=== PATIENT | female | born 1975 | race Caucasian/White ===

== ENCOUNTER 2017-07-14 21:22 | Inpatient (IN) | payer MEDICARE, OTHER ==
[~2017-07-14] VITALS: Ht 160 cm; Wt 93.0 kg
[~2017-07-14 21:22] MED LIST: BENZ1TAB10 PO; DIVA500T52 PO; QUET200T PO
[2017-07-14] MEDS ORDERED: ZOLPIDEM TARTRATE 10 MG TABLET PO PRN (22:30)
[2017-07-15 06:47] VITALS: BP 139/74
[2017-07-15 07:10] VITALS: BP 139/74
[2017-07-15 08:53] VITALS: BP 115/66
[2017-07-15] MEDS ORDERED: HALOPERIDOL LACTATE 5 MG/ML VIAL IM ONE (09:30)
[2017-07-15] MEDS ORDERED: LORazepam 2 MG/ML VIAL IM ONE (09:30)
[2017-07-15] MEDS ORDERED: DiphenhydrAMINE HCL 50 MG/ML VIAL IM ONE (09:30)
[2017-07-15] MEDS ORDERED: LORazepam 2 MG/ML VIAL ONE (14:29)
[2017-07-15] MEDS ORDERED: DiphenhydrAMINE HCL 50 MG/ML VIAL ONE (14:29)
[2017-07-15] MEDS ORDERED: HALOPERIDOL LACTATE 5 MG/ML VIAL ONE (14:29)
[2017-07-15 16:13] VITALS: BP 118/60
[2017-07-16 05:51] VITALS: BP 101/64
[2017-07-16 08:23] VITALS: BP 113/79
[2017-07-16] MEDS: PALIPERIDONE 3 MG ER TABLET PO SCH ×3 (08:43→17:00)
[2017-07-16 16:15] VITALS: BP 147/90
[2017-07-17 05:54] VITALS: BP 133/87
[2017-07-17 08:22] VITALS: BP 99/60
[2017-07-17] MEDS: PALIPERIDONE 3 MG ER TABLET PO SCH ×3 (09:00→17:00)
[2017-07-17 16:29] VITALS: BP 121/77
[2017-07-18 04:58] VITALS: BP 124/80
[2017-07-18 08:38] VITALS: BP 120/71
[2017-07-18] MEDS: PALIPERIDONE 3 MG ER TABLET PO SCH ×3 (09:00→16:39)
[2017-07-18 16:47] VITALS: BP 133/86
[2017-07-19 03:50] VITALS: BP 124/82
[2017-07-19 08:05] VITALS: BP 115/65
[2017-07-19] MEDS: PALIPERIDONE 3 MG ER TABLET PO SCH ×3 (09:00→17:00)
[2017-07-19] MEDS ORDERED: ACETAMINOPHEN 325 MG TABLET PO PRN ×2 (10:00→21:00)
[2017-07-19] MEDS ORDERED: IBUPROFEN 600 MG TABLET PO PRN ×2 (10:00→21:00)
[2017-07-20 01:31] VITALS: BP 114/71
[2017-07-20] MEDS: HALOPERIDOL 5 MG TABLET PO PRN (01:38)
[2017-07-20] MEDS: LORazepam 2 MG TABLET PO PRN (01:38)
[2017-07-20 08:51] VITALS: BP 133/88
[2017-07-20] MEDS: OLANZapine 5 MG RAPDIS TABLET PO SCH ×3 (09:00→16:15)
[2017-07-20 16:33] VITALS: BP 116/65
[2017-07-21 06:30] VITALS: BP 128/88
[2017-07-21] MEDS: LORazepam 2 MG TABLET PO PRN (08:33)
[2017-07-21] MEDS: OLANZapine 5 MG RAPDIS TABLET PO SCH ×3 (08:33→17:00)
[2017-07-21] MEDS: HALOPERIDOL 5 MG TABLET PO PRN (08:40)
[2017-07-21 09:27] VITALS: BP 139/82
[2017-07-21 16:31] VITALS: BP 140/84
[2017-07-21] MEDS ORDERED: DiphenhydrAMINE HCL 50 MG/ML VIAL ONE (18:26)
[2017-07-21] MEDS ORDERED: HALOPERIDOL LACTATE 5 MG/ML VIAL ONE ×2 (18:26→19:00)
[2017-07-21] MEDS ORDERED: LORazepam 2 MG/ML VIAL ONE (18:26)
[2017-07-21] MEDS ORDERED: LORazepam 2 MG/ML VIAL IM ONE (19:10)
[2017-07-21] MEDS ORDERED: HALOPERIDOL LACTATE 5 MG/ML VIAL IM ONE (19:10)
[2017-07-21] MEDS ORDERED: DiphenhydrAMINE HCL 50 MG/ML VIAL IM ONE (19:10)
[2017-07-21 19:40] VITALS: BP 127/69
[2017-07-22 02:00] VITALS: BP 132/70
[2017-07-22] MEDS: OLANZapine 5 MG RAPDIS TABLET PO SCH ×2 (08:39→16:23)
[2017-07-22 09:02] VITALS: BP 129/88
[2017-07-22] MEDS ORDERED: HALOPERIDOL LACTATE 5 MG/ML VIAL IM PRN (15:15)
[2017-07-22 16:08] VITALS: BP 128/88
[2017-07-22 16:17] VITALS: BP 146/79
[2017-07-23 04:48] VITALS: BP 133/77
[2017-07-23] MEDS: HALOPERIDOL 10 MG TABLET PO SCH ×3 (08:12→17:09)
[2017-07-23] MEDS: LORazepam 2 MG TABLET PO PRN (08:12)
[2017-07-23 08:43] VITALS: BP 139/80
[2017-07-23 16:00] VITALS: BP 144/73
[2017-07-24 05:36] VITALS: BP 132/71
[2017-07-24] MEDS: LORazepam 2 MG TABLET PO PRN (08:11)
[2017-07-24] MEDS: HALOPERIDOL 10 MG TABLET PO SCH ×2 (08:11→17:44)
[2017-07-24 08:50] VITALS: BP 120/75
[2017-07-24 16:00] VITALS: BP 123/71
[2017-07-25 05:20] VITALS: BP 120/78
[2017-07-25 08:14] VITALS: BP 112/73
[2017-07-25] MEDS: HALOPERIDOL 10 MG TABLET PO SCH ×2 (09:12→16:40)
[2017-07-25 16:23] VITALS: BP 132/87
[2017-07-26 04:12] VITALS: BP 128/78
[2017-07-26] MEDS: HALOPERIDOL 10 MG TABLET PO SCH ×2 (08:28→16:47)
[2017-07-26 08:49] VITALS: BP 140/84
[2017-07-26 16:00] VITALS: BP 131/89
[2017-07-26] MEDS: LORazepam 2 MG TABLET PO PRN (18:07)
[2017-07-27 06:19] VITALS: BP 105/70
[2017-07-27 08:11] VITALS: BP 136/71
[2017-07-27] MEDS: HALOPERIDOL 10 MG TABLET PO SCH ×2 (08:29→16:16)
[2017-07-27 16:24] VITALS: BP 124/66
[2017-07-27] MEDS: TraZODone HCL 50 MG TABLET PO SCH (20:28)
[2017-07-27] MEDS ORDERED: DIVALPROEX SODIUM 500 MG ER TABLET PO SCH ×2 (21:00)
[2017-07-28 06:40] VITALS: BP 129/74
[2017-07-28] MEDS: HALOPERIDOL 10 MG TABLET PO SCH ×2 (08:53→16:27)
[2017-07-28 09:40] VITALS: BP 102/55
[2017-07-28 16:27] VITALS: BP 119/68
[2017-07-28] MEDS: TraZODone HCL 50 MG TABLET PO SCH (20:11)
[2017-07-29 08:33] VITALS: BP 115/67
[2017-07-29] MEDS: HALOPERIDOL 10 MG TABLET PO SCH ×2 (08:57→16:21)
[2017-07-29] MEDS: LORazepam 2 MG TABLET PO PRN (08:57)
[2017-07-29] MEDS: DIVALPROEX SODIUM 500 MG ER TABLET PO SCH ×2 (08:57→16:22)
[2017-07-29 16:12] VITALS: BP 111/66
[2017-07-29] MEDS: TraZODone HCL 50 MG TABLET PO SCH (20:30)
[2017-07-30 06:41] VITALS: BP 108/65
[2017-07-30 08:20] VITALS: BP 100/56
[2017-07-30] MEDS: HALOPERIDOL 10 MG TABLET PO SCH ×2 (08:49→17:15)
[2017-07-30] MEDS: DIVALPROEX SODIUM 500 MG ER TABLET PO SCH ×2 (08:49→17:00)
[2017-07-30] MEDS ORDERED: HALOPERIDOL DECANOATE 50 MG/ML VIAL IM SCH (09:00)
[2017-07-30 16:10] VITALS: BP 121/63
[2017-07-30] MEDS: TraZODone HCL 50 MG TABLET PO SCH (21:16)
[2017-07-31 06:23] VITALS: BP 103/62
[2017-07-31 08:35] VITALS: BP 129/60
[2017-07-31] MEDS: HALOPERIDOL 10 MG TABLET PO SCH ×2 (08:49→17:11)
[2017-07-31] MEDS: DIVALPROEX SODIUM 500 MG ER TABLET PO SCH ×2 (08:50→17:11)
[2017-07-31 16:00] VITALS: BP 118/71
[2017-07-31] MEDS: TraZODone HCL 50 MG TABLET PO SCH (20:34)
[2017-08-01 03:58] VITALS: BP 114/68
[2017-08-01 08:18] VITALS: BP 102/57
[2017-08-01] MEDS: HALOPERIDOL 10 MG TABLET PO SCH ×2 (09:29→17:04)
[2017-08-01] MEDS: DIVALPROEX SODIUM 500 MG ER TABLET PO SCH ×2 (09:29→17:04)
[2017-08-01 16:37] VITALS: BP 119/84
[2017-08-01] MEDS: TraZODone HCL 50 MG TABLET PO SCH (20:22)
[2017-08-02 05:07] VITALS: BP 117/73
[2017-08-02 08:00] VITALS: BP 105/63
[2017-08-02] MEDS: DIVALPROEX SODIUM 500 MG ER TABLET PO SCH ×2 (09:00→17:02)
[2017-08-02] MEDS: HALOPERIDOL 10 MG TABLET PO SCH ×2 (09:00→17:01)
[2017-08-02 16:20] VITALS: BP 109/60
[2017-08-02] MEDS: TraZODone HCL 50 MG TABLET PO SCH (20:16)
[2017-08-03 02:33] VITALS: BP 117/63
[2017-08-03 08:46] VITALS: BP 118/78
[2017-08-03] MEDS: DIVALPROEX SODIUM 500 MG ER TABLET PO SCH ×2 (08:46→16:08)
[2017-08-03] MEDS: HALOPERIDOL 10 MG TABLET PO SCH ×2 (08:46→16:08)
[2017-08-03 16:17] VITALS: BP 117/68
[2017-08-03] MEDS: TraZODone HCL 50 MG TABLET PO SCH (20:12)
[2017-08-04 07:08] VITALS: BP 116/82
[2017-08-04] MEDS: DIVALPROEX SODIUM 500 MG ER TABLET PO SCH ×2 (08:12→16:15)
[2017-08-04] MEDS: HALOPERIDOL 10 MG TABLET PO SCH ×2 (08:12→16:15)
[2017-08-04] MEDS ORDERED: DIVA500T35 PO (12:59)
[2017-08-04] MEDS ORDERED: TRAZ-144 PO (12:59)
[2017-08-04] MEDS ORDERED: HALO10 PO (12:59)
[2017-08-04] MEDS ORDERED: HALO50VI4 IM (13:01)
[2017-08-04 14:00] VITALS: BP 102/66
[2017-08-04 16:25] VITALS: BP 131/71
[2017-08-04] MEDS: BENZTROPINE MESYLATE 1 MG TABLET PO SCH (19:57)
[2017-08-04] MEDS: TraZODone HCL 50 MG TABLET PO SCH (20:17)
[2017-08-05 04:17] VITALS: BP 130/70
[2017-08-05] MEDS: BENZTROPINE MESYLATE 1 MG TABLET PO SCH (08:21)
[2017-08-05] MEDS: DIVALPROEX SODIUM 500 MG ER TABLET PO SCH (08:21)
[2017-08-05] MEDS: HALOPERIDOL 10 MG TABLET PO SCH (08:21)
[2017-08-05 08:29] LABS: HEMOGLOBIN A1C 6.1 % (4.5-6.2)
[2017-08-05 08:33] LABS: BASOPHILS % (AUTO) 0.2 % (0.0-2.0); EOSINOPHILS % (AUTO) 1.1 % (1.0-6.0); HEMATOCRIT 30.1 % (36-46); HEMOGLOBIN 9.1 g/dL (12.0-16.0); LYMPHOCYTES # (AUTO) 2.6 K/uL (1.0-4.8); LYMPHOCYTES % (AUTO) 34.5 % (22.0-44.0); MEAN CORPUSCULAR HEMOGLOBIN 19.6 pg (26.0-34.0); MEAN CORPUSCULAR HGB CONC 30.2 G/dL (31.0-37.0); MEAN CORPUSCULAR VOLUME 65 fL (80-100); MONOCYTES # (AUTO) 0.2 K/uL (0.1-1.0); MONOCYTES % (AUTO) 3.3 % (2.0-9.0); NEUTROPHILS # (AUTO) 4.6 K/uL (1.8-7.7); NEUTROPHILS % (AUTO) 60.9 % (40.0-70.0); PLATELET COUNT (AUTO) 475 K/uL (150-450); RED BLOOD CELL COUNT(AUTO) 4.64 MIL/uL (4.00-5.20); RED CELL DISTRIBUTION WIDTH 19.4 % (11.5-14.5); WHITE BLOOD COUNT (AUTO) 7.5 K/uL (4.5-11.0)
[2017-08-05 08:42] LABS: RBC MORPHOLOGY COMMENT ABNORMAL RBC MORPH
[2017-08-05 08:57] LABS: VITAMIN B12 LEVEL > 2000 pg/mL (211-911)
[2017-08-05 09:03] LABS: ALANINE AMINOTRANSFERASE 13 U/L (12-78); ALBUMIN 3.1 g/dL (3.4-5.0); ANION GAP 7 mmol/L (8-16); ASPARTATE AMINOTRANSFERASE 10 U/L (15-37); BILIRUBIN,TOTAL 0.2 mg/dL (0.1-1.0); CALCIUM, TOTAL 8.7 mg/dL (8.8-10.5); CARBON DIOXIDE 27 mmol/L (22-29); CHLORIDE 101 mmol/L (98-107); CHOL/HDL RATIO 2.3 (3.9-5.7); CREATININE 0.62 mg/dL (0.60-1.30); GLOMERULAR FILTR. RATE CALC > 60 mL/min (>60); POTASSIUM 4.1 mmol/L (3.5-5.1); SODIUM SERUM 135 mmol/L (136-145); THYROID STIMULATING HORMONE 6.91 uIU/mL (0.36-3.74); TOTAL PROTEIN, SERUM 7.7 g/dL (6.4-8.2); UREA NITROGEN, BLOOD 16 mg/dL (7-18); VALPROIC ACID 122 mcg/mL (50-100)
[2017-08-05 12:00] LABS: FERRITIN 4 ng/mL (8-252)
[2017-08-06 09:47] LABS: HEPATITIS Bs ANTIGEN SCREEN P Negative (Negative); HEPATITIS C AB SCREEN 0.8 s/co ratio (0.0-0.9)
== END 2017-08-05 10:19 | disposition home or self-care (01) | DRG 885 ==
LOC: EMS 21:24 → B3A 22:59
PROVIDERS: ADMIT Psychiatry & Neurology Psychiatry; ATTEND Psychiatry & Neurology Psychiatry
DX: F31.2 Bipolar disorder, current episode manic severe with psychotic features (principal); E87.1 Hypo-osmolality and hyponatremia; E66.01 Morbid (severe) obesity due to excess calories; G44.209 Tension-type headache, unspecified, not intractable; G47.00 Insomnia, unspecified; Z85.3 Personal history of malignant neoplasm of breast; Z91.14 Patient's other noncompliance with medication regimen; Z91.19 Patient's noncompliance with other medical treatment and regimen; R63.4 Abnormal weight loss; N63 Unspecified lump in breast; D64.9 Anemia, unspecified; Z68.36 Body mass index [BMI] 36.0-36.9, adult
CPT/HCPCS: 80074; 82607; 82652; 82728; 82746; 83036; 83735; 84439; 84443; 86592; 99285; J1200; J1630; J1631; J2060